=== PATIENT | male | born 1970 | race Caucasian/White ===

== ENCOUNTER → 2021-09-25 | Outpatient (CLI) | payer OTHER ==
[~2021-09-25] MED LIST: IBUPROFEN800 MG PO; KEFLEX CAP 500500 MG PO; LISINOPRIL-HCT1 EAC1 PO; PERCOCET 5/325 T1 EA PO; ROBAXIN500 MG PO; SYNTHROID175 MCG PO; VITAMIN C 500500 MG PO; VITAMIN D250000 UNIT PO
== END ==
LOC: KOH-I 14:44
DX: M25.571 Pain in right ankle and joints of right foot (principal)
CPT/HCPCS: 73610

== ENCOUNTER → 2021-10-13 | Outpatient (CLI) | payer OTHER | LOC: KOH-I 13:32 | DX: S86.391A Other injury of muscle(s) and tendon(s) of peroneal muscle group at lower leg level, right leg, initial encounter (principal); S93.431A Sprain of tibiofibular ligament of right ankle, initial encounter; M95.8 Other specified acquired deformities of musculoskeletal system; M93.971 Osteochondropathy, unspecified, right ankle and foot | CPT/HCPCS: 73721 ==